=== PATIENT | female | born 1990 | race Caucasian/White ===

== ENCOUNTER 2021-12-13 08:56 | Outpatient (CLI) | payer OTHER | END 2021-12-13 18:00 | disposition home or self-care (01) | LOC: SMA 08:56 | PROVIDERS: ATTEND Pediatrics | DX: S33.5XXA Sprain of ligaments of lumbar spine, initial encounter (principal); N64.4 Mastodynia; X58.XXXA Exposure to other specified factors, initial encounter; Y93.89 Activity, other specified; Y92.89 Other specified places as the place of occurrence of the external cause; Y99.8 Other external cause status | CPT/HCPCS: 72110; 76642; 77066 ==